=== PATIENT | female | born 1990 | race Caucasian/White ===

== ENCOUNTER 2019-02-16 23:27 | Emergency (ER) | payer SELFPAY ==
[~2019-02-16] VITALS: Ht 152.4 cm; Wt 63.5 kg
[2019-02-16 23:31] VITALS: Ht 152.4 cm; Wt 63.5 kg
[2019-02-16 23:44] LABS: BASOPHILS 0.2 % (0-2); EOSINOPHILS 0.4 % (0-7); HEMATOCRIT 35.8 % (36.0-48.0); HEMOGLOBIN 12.2 g/dL (12-16); IMMATURE GRANULOCYTES 0.1 % (0-5); LYMPHOCYTES 12.8 % (15-50); MCH 28.3 pg (26.0-34.0); MCHC 34.1 g/dL (31.0-37.0); MCV 83.1 fL (80.0-100.0); MONOCYTES 5.9 % (2-11); NEUTROPHILS 80.6 % (40-80); PLATELET COUNT 168 10x3/uL (130-400); RBC 4.31 10x6/uL (4.00-5.40); RDW 13.4 % (11.5-14.5); WBC 10.5 10x3/uL (4.8-10.8)
[2019-02-17 00:01] LABS: ALBUMIN 3.6 g/dL (3.4-5.0); ALKALINE PHOSPHATASE 71 U/L (46-116); ALT (SGPT) 17 U/L (10-68); BILIRUBIN - TOTAL 0.27 mg/dL (0.2-1.3); CALC OSMOLALITY 270 mosm/kg (275-300); CALCIUM 8.6 mg/dL (8.5-10.1); CHLORIDE - SERUM 101 mmol/L (98-107); CREATININE - SERUM 0.9 mg/dL (0.6-1.3); GLUCOSE 96 mg/dL (74-106); POTASSIUM - SERUM 4.1 mmol/L (3.5-5.1); PROTEIN - SERUM 7.2 g/dL (6.4-8.2); SODIUM 136 mmol/L (136-145); UREA NITROGEN 9 mg/dL (7-18); eGFR NON AFRICAN AMERICAN 79 mL/min (90-120)
[2019-02-17 00:03] LABS: AMYLASE - SERUM 28 U/L (25-115); LIPASE 68 U/L (73-393); TROPONIN-I < 0.017 ng/mL (0.000-0.060)
[2019-02-17 00:12] LABS: HCG SERUM NEGATIVE (NEGATIVE)
[2019-02-17 00:12] LABS: HCG URINE NEGATIVE (NEGATIVE)
[2019-02-17 00:14] LABS: APPEARANCE HAZY (CLEAR); BACTERIA NONE SEEN /hpf (NONE SEEN); BILIRUBIN NEGATIVE (NEGATIVE); COLOR YELLOW (YELLOW); GLUCOSE NEGATIVE (NEGATIVE); KETONE NEGATIVE (NEGATIVE); NITRITE NEGATIVE (NEGATIVE); PROTEIN NEGATIVE (NEGATIVE); UROBILINOGEN NORMAL (NORMAL); WHITE CELLS - URINE 0-5 /hpf (0-5)
[2019-02-17] MEDS ORDERED: TORADOL10 MG PO (01:08)
[2019-02-17 01:31] VITALS: BP 111/64
== END 2019-02-17 01:31 | disposition home or self-care (01) ==
LOC: D.ER 23:27
PROVIDERS: Family Medicine
DX: R10.31 Right lower quadrant pain (principal)

== ENCOUNTER 2019-04-16 08:24 | Emergency (ER) | payer MEDICAID ==
[~2019-04-16] VITALS: Ht 172.7 cm; Wt 65.9 kg
[~2019-04-16 08:24] MED LIST: TORADOL10 MG PO
[2019-04-16 08:45] VITALS: Ht 172.7 cm; Wt 65.9 kg
[2019-04-16] MEDS ORDERED: VYVANSE70 MG PO (08:47)
[2019-04-16] MEDS ORDERED: PREDNISONE20 MG PO (09:53)
[2019-04-16] MEDS ORDERED: ULTRAM50 MG PO (09:53)
[2019-04-16 10:05] VITALS: BP 103/70
== END 2019-04-16 10:01 | disposition home or self-care (01) ==
LOC: D.ER 08:24
DX: S03.41XA Sprain of jaw, right side, initial encounter (principal); F17.200 Nicotine dependence, unspecified, uncomplicated